=== PATIENT | male | born 1960 | race Caucasian/White ===

== ENCOUNTER → 2017-09-27 | Outpatient (CLI) | payer OTHER ==
--- NOTE | 2017-09-27 17:00 | CT ---
EXAMINATION TYPE: CT abdomen pelvis w con DATE OF EXAM: 09/27/2017 COMPARISON: 02/07/2012 HISTORY: Right sided abdominal pain after eating x [address] DLP: 2279.8 mGycm Automated exposure control for dose reduction was used. TECHNIQUE: Helical acquisition of images was performed from the lung bases through the pelvis. CONTRAST: Performed with Oral Contrast and with IV Contrast, patient injected with 100 mL of Omnipaque 300. FINDINGS: Lung bases are clear. There is no pleural effusion. Heart size is normal. Liver spleen pancreas gallbladder appear normal. Bile ducts are not dilated. There is no adrenal mass . Kidneys show satisfactory contrast opacification. There is no hydronephrosis. There is no retroperi toneal adenopathy. There is no ascites. I see no intestinal wall thickening. There are no dilated loo ps. There is no sign of a bowel obstruction. Appendix appears normal. I see no bony destructive proce ss. There is some spondylosis in the lower lumbar spine. There are few sigmoid diverticula. There is no evidence of diverticulitis. Bladder distends smoothly. There is no pelvic mass. There is a small p rostate calcification. IMPRESSION: NEGATIVE CT SCAN OF THE ABDOMEN AND PELVIS FOR ANY ACUTE ABNORMALITY. NORMAL APPENDIX. NO ADVERSE TASHA NGE COMPARED TO OLD EXAM. MINIMAL SIGMOID DIVERTICULOSIS.
== END | disposition home or self-care (01) ==
LOC: RADCTMAIN 16:14
PROVIDERS: ATTEND Surgery
DX: R10.11 Right upper quadrant pain (principal)
CPT/HCPCS: 74177; Q9967

== ENCOUNTER → 2018-12-21 | Outpatient (CLI) | payer BC ==
--- NOTE | 2018-12-22 11:23 | XR ---
Left shoulder HISTORY: Pain, trauma 2 weeks prior 3 views of the left shoulder Bone mineralization, joint spaces and alignment are maintained. Distal acromion is downturned. Left l reilly apex as visualized is normal. IMPRESSION: No fracture or dislocation. Shoulder MRI may be of benefit.
== END | disposition home or self-care (01) ==
LOC: RADXRYALE 15:40
PROVIDERS: ATTEND Physician Assistant Medical
DX: M25.512 Pain in left shoulder (principal)

== ENCOUNTER → 2019-03-01 | Outpatient (CLI) | payer BC ==
--- NOTE | 2019-03-01 12:19 | US ---
EXAMINATION TYPE: US abdomen limited DATE OF EXAM: 03/01/2019 COMPARISON: CT CLINICAL HISTORY: 58-year-old male R10.11 right upper quadrant pain, K21.9 GERD. TECHNIQUE: Multiple sonographic images of the right upper quadrant are obtained. FINDINGS: EXAM MEASUREMENTS: Liver Length: 13.2 cm Gallbladder Wall: 0.2 cm CBD: 0.5 cm Right Kidney: 11.6 x 5.1 x 6.4 cm Pancreas: visualized portions wnl Liver: Echogenic and attenuating. Gallbladder: Distended measuring 4.4 cm wide. No wall thickening, surrounding fluid, or shadowing ca lculi. Evidence for sonographic Cooley's sign: no CBD: wnl Right Kidney: No hydronephrosis. IMPRESSION: 1. Echogenic and attenuating liver suggests hepatic steatosis. Correlate with LFTs, profile, and rae ent risk factors. 2. Hydropic gallbladder probably due to fasting state. No ancillary imaging findings of acute cholecy stitis. If further imaging evaluation of the gallbladder is desired, HIDA scan can be performed. 3. No biliary ductal dilatation.
== END | disposition home or self-care (01) ==
LOC: RADUSWWP 10:01
PROVIDERS: ATTEND Family Medicine
DX: R10.11 Right upper quadrant pain (principal); K21.9 Gastro-esophageal reflux disease without esophagitis
CPT/HCPCS: 76705

== ENCOUNTER → 2021-03-17 | Outpatient (CLI) | payer BC ==
--- NOTE | 2021-03-17 13:47 | US ---
EXAMINATION TYPE: US venous doppler duplex LE RT DATE OF EXAM: 03/17/2021 1:38 PM COMPARISON: NONE CLINICAL HISTORY: R22.41 SWELLING,MASS AND LUMP RT,[id number] PAIN IN RT. SIDE PERFORMED: Right TECHNIQUE: The lower extremity deep venous system is examined utilizing real time linear array sonog kim with graded compression, doppler sonography and color-flow sonography. VESSELS IMAGED: Common Femoral Vein Deep Femoral Vein Greater Saphenous Vein * Femoral Vein Popliteal Vein Small Saphenous Vein * Proximal Calf Veins (* superficial vessels) Right Leg: Negative for DVT Scanning was performed over lump on patient's calf. There are multiple varicosities noted. One small varicosity is only partially compressible. IMPRESSION: 1. No sonographic evidence for deep vein thrombosis of the right lower extremity. 2. Multiple varicosities are noted in the right calf over the area of palpable abnormality with an ar ea of noncompressibility, most consistent with thrombophlebitis. Please correlate clinically.
== END | disposition home or self-care (01) ==
LOC: RADUSWWP 13:03
PROVIDERS: ATTEND Family Medicine
DX: R22.41 Localized swelling, mass and lump, right lower limb (principal); M79.604 Pain in right leg

== ENCOUNTER → 2021-11-25 | Outpatient (CLI) | payer BC ==
--- NOTE | 2021-11-26 09:17 | US ---
EXAMINATION TYPE: US carotid duplex BILAT DATE OF EXAM: 11/25/2021 COMPARISON: NONE CLINICAL HISTORY: R42 Dizziness, I10 HTN,R51.9 headache. Dizziness with positional changes. EXAM MEASUREMENTS: RIGHT: Peak Systolic Velocity (PSV) cm/sec ----- Right CCA: 81.7 ----- Right ICA: 56.8 ----- Right ECA: 122.2 mid ICA/CCA ratio: 0.7 RIGHT: End Diastole cm/sec ----- Right CCA: 18.9 ----- Right ICA: 10.6 ----- Right ECA: 15.5 LEFT: Peak Systolic Velocity (PSV) cm/sec ----- Left CCA: 72.2 ----- Left ICA: 81.1 ----- Left ECA: 94.3 ICA/CCA ratio: 1.1 LEFT: End Diastole cm/sec ----- Left CCA: 19.4 ----- Left ICA: 19.4 ----- Left ECA: 15.0 VERTEBRALS (direction of flow): Right Vertebral: Antegrade Left Vertebral: Antegrade Rhythm: Normal Mild to moderate intimal wall changes are noted at bilateral carotid bifurcations, but PSV is wnl danielle aterally. Short, thick neck is noted. Grayscale, color Doppler, spectral Doppler performed of the car otid arteries. Waveform analysis does not show significant stenosis of the internal carotid arteries. IMPRESSION: No hemodynamic significant stenosis of the proximal internal carotid arteries by Doppler criteria, an indirect measurement of carotid stenosis Criteria for Assigning % of Stenosis / Diameter reduction (Estimation based on the indirect measurements of the internal carotid artery velocities (ICA PSV). 1. Normal (no stenosis)=ICA PSV < 125 cm/s: ratio < 2.0: ICA EDV<40 cm/s. 2. Less than 50% stenosis=ICA PSV < 125 cm/s: ratio < 2.0: ICA EDV<40 cm/s. 3. 50 to 69% stenosis=ICA PSV of 125 to 230 cm/s: ration 2.0 ? 4.0: ICA EDV 40-100 cm/s. 4. Greater than 70% stenosis to near occlusion= ICA PSV > 230 cm/s: ratio > 4.0: ICA EDV > 100 cm/s. 5. Near occlusion= ICA PSV velocities may be low or undetectable: variable ratio and ICA EDV. 6. Total occlusion=unable to detect flow.
== END | disposition home or self-care (01) ==
LOC: RADUSWWP 16:35
PROVIDERS: ATTEND Family Medicine
DX: R42 Dizziness and giddiness (principal); I10 Essential (primary) hypertension; R51.9 Headache, unspecified
CPT/HCPCS: 93880

== ENCOUNTER → 2021-12-28 | Outpatient (CLI) | payer BC ==
--- NOTE | 2021-12-28 19:27 | CA ---
Transthoracic Echo Report Name: Raimundo Schulz Age: 61 Gender: M : 1960 Exam Date: 12/28/2021 15:03 Exam Location: [facility] Ht (in): 68 Wt (lb): 280 Ordering Physician: Kole Pleitez DO Attending/Referring Phys: Sangita Ruelas PAC Clerical Investigator Bozena London RDCS Procedure CPT: Indications: R42 Dizziness, I10 HTN,E78.2 Mixed hyperlipidemia Cardiac Hx: Technical Quality: Fair Contrast 1: N/A Total Dose (mL): Contrast 2: Total Dose (mL): MEASUREMENTS (Male / Female) Normal Values 2D ECHO LV Diastolic Diameter PLAX 4.9 cm 4.2 - 5.9 / 3.9 - 5.3 cm LV Systolic Diameter PLAX 2.9 cm IVS Diastolic Thickness 1.3 cm 0.6 - 1.0 / 0.6 - 0.9 cm LVPW Diastolic Thickness 1.2 cm 0.6 - 1.0 / 0.6 - 0.9 cm LV Relative Wall Thickness 0.5 RV Internal Dim ED PLAX 3.4 cm LA Systolic Diameter LX 3.6 cm 3.0 - 4.0 / 2.7 - 3.8 cm LA Volume 77.7 cm??? 18 - 58 / 22 - 52 cm??? M-MODE Aortic Root Diameter MM 3.7 cm LA Systolic Diameter MM 3.9 cm LA Ao Ratio MM 1.0 MV E Point Septal Separation 0.3 cm AV Cusp Separation MM 2.2 cm DOPPLER MV Area PHT 3.8 cm??? Mitral E Point Velocity 55.9 cm/s Mitral A Point Velocity 71.4 cm/s Mitral E to A Ratio 0.8 MV Deceleration Time 200.4 ms MV E' Velocity 8.2 cm/s Mitral E to MV E' Ratio 6.9 TR Peak Velocity 155.1 cm/s TR Peak Gradient 9.6 mmHg Right Ventricular Systolic Press 14.6 mmHg FINDINGS Left Ventricle Mildly increased septal wall thickness. Left ventricular ejection fraction is estimated at 50-55%. Right Ventricle Normal right ventricular size and function. Right ventricular systolic pressure within normal limits. Right Atrium Normal right atrial size. Left Atrium Moderately increased left atrial volume. Mildly increased left atrial area. Mitral Valve Mild mitral regurgitation. Aortic Valve Trileaflet aortic valve. Tricuspid Valve Mild tricuspid regurgitation. Pulmonic Valve Pulmonic valve not well visualized. Pericardium Normal pericardium. Aorta Normal size aortic root and proximal ascending aorta. CONCLUSIONS Mild LVH with preserved LV systolic function Previewed by: Dr. Mauro Brooks MD (Electronically Signed) Final Date: 28 Dec 2021 19:26
== END | disposition home or self-care (01) ==
LOC: RADECHMAIN 14:55
PROVIDERS: ATTEND Family Medicine
DX: I10 Essential (primary) hypertension (principal); I08.1 Rheumatic disorders of both mitral and tricuspid valves
CPT/HCPCS: 93306

== ENCOUNTER → 2023-03-10 | Outpatient (CLI) | payer BC ==
--- NOTE | 2023-03-10 09:53 | USB ---
Reason for Exam: Clinical finding. Patient History: Sister had breast cancer. Sister had breast cancer. Technique: Method: Whole Breast Handheld. Findings: The whole breast of the right breast, the axilla of the right breast and the retroareolar of both breasts were scanned. No solid or cystic masses are identified. There is some hypoechoic area in the retroareolar region typical for gynecomastia. This area measures approximately 2.0 x 1.1 cm.. Overall Assessment: Benign, BI-RAD 2 Electronically signed and approved by: Arash Arreola D.O. Radiologis
--- NOTE | 2023-03-10 09:54 | MM ---
Reason for Exam: Clinical finding. Baseline mammogram. Indicated Problems: Lump or thickening of the right side for 6 Week(s). Patient History: Sister had breast cancer. Sister had breast cancer. Prior Study Comparison: Patient's first Mammogram. No prior studies available for comparison. Tissue Density: The breast tissue is heterogeneously dense. This may lower the sensitivity of mammography. Findings: Analyzed By CAD. There is focal asymmetry in the subareolar right breast. This has an appearance of gynecomastia. Ultrasound can further evaluate this finding. Scattered benign calcifications are present bilaterally. No suspicious cluster of microcalcifications is evident. No suspicious groups of microcalcifications, spiculated or lobular masses, architectural distortion or other secondary signs of malignancy are mammographically apparent. Overall Assessment: Incomplete: need additional imaging evaluation, BI-RAD 0 Management: Diagnostic Breast Ultrasound of the right breast. A negative mammogram report should not preclude additional follow up of suspicious palpable abnormalities. Patient should continue monthly self breast exam. A clinical breast exam by your physician is recommended on an annual basis and results should be correlated with mammographic findings. Electronically signed and approved by: Arash Arerola D.O. Radiologis
== END | disposition home or self-care (01) ==
LOC: RADMAMWWP 08:50
PROVIDERS: ATTEND Family Medicine
DX: N63.13 Unspecified lump in the right breast, lower outer quadrant (principal); Z80.3 Family history of malignant neoplasm of breast
CPT/HCPCS: 77062; 77066

== ENCOUNTER → 2025-03-24 | Outpatient (CLI) | payer MEDICARE ==
[2025-03-24 10:11] LABS: HCT 48.2 % (39.6-50.0); HGB 15.3 g/dL (13.0-17.0); MCH 28.7 pg (27.0-32.0); MCHC 31.7 g/dL (32.0-37.0); MCV 90.3 FL (80.0-97.0); NRBC Per 100 WBC 0 X 10*3/uL (0.00-0.01); Platelet Count 237 X 10*3/uL (140-440); RBC 5.34 X 10*6/uL (4.40-5.60); RDW 12.9 % (11.5-14.5); WBC 8.17 X 10*3/uL (4.50-10.00)
[2025-03-24 10:24] LABS: NT-Pro-B-Type Natriuretic Pept 36 pg/mL (0-125)
[2025-03-24 10:37] LABS: ALT 33 U/L (10-49); AST 21 U/L (14-35); Anion Gap 11.70 mmol/L (4.00-12.00); BUN/Creat Ratio 23.11 Ratio (12.00-20.00); Blood Urea Nitrogen 20.8 mg/dL (9.0-27.0); Calcium 9.5 mg/dL (8.7-10.3); Carbon Dioxide 29.3 mmol/L (21.6-31.8); Chloride 100 mmol/L (96-109); Cholesterol 202.00 mg/dL (0.00-200.00); Glucose 122 mg/dL (70-110); HDL Cholesterol 45.20 mg/dL (40.00-60.00); LDL Cholesterol,Calculated 133.0 mg/dL (0.0-131.0); Potassium 4.8 mmol/L (3.5-5.5); Sodium 141 mmol/L (135-145); Triglycerides 119.00 mg/dL (0.00-149.00); VLDL Calculation 23.80 mg/dL (5.00-40.00)
== END | disposition home or self-care (01) ==
LOC: LABWHC1 08:01
PROVIDERS: ATTEND Internal Medicine Cardiovascular Disease
DX: E78.2 Mixed hyperlipidemia (principal); R06.02 Shortness of breath
CPT/HCPCS: 36415; 80048; 80061; 83880; 84443; 84450; 84460; 85027